=== PATIENT | female | born 1935 | race Caucasian/White ===

== ENCOUNTER 2017-08-04 10:27 | Emergency (ER) | payer OTHER ==
[~2017-08-04] VITALS: Ht 162.6 cm; Wt 54.4 kg
[2017-08-04 12:07] VITALS: BP 148/76
== END 2017-08-04 12:09 | disposition home or self-care (01) ==
LOC: ER 10:27
DX: R22.0 Localized swelling, mass and lump, head (principal); F03.90 Unspecified dementia, unspecified severity, without behavioral disturbance, psychotic disturbance, mood disturbance, and anxiety

== ENCOUNTER → 2017-08-11 | Outpatient (CLI) | payer OTHER ==
[~2017-08-11] MED LIST: NOHOMEMEDICATIONS
== END ==
LOC: EDBD → SEN 08-10 08:33
DX: C44.91 Basal cell carcinoma of skin, unspecified (principal); F03.90 Unspecified dementia, unspecified severity, without behavioral disturbance, psychotic disturbance, mood disturbance, and anxiety